=== PATIENT | male | born 1955 | race Caucasian/White ===

== ENCOUNTER 2020-10-09 19:19 | Emergency (ER) | payer MEDICAID, OTHER ==
[~2020-10-09] VITALS: Ht 175.3 cm; Wt 108.9 kg
[~2020-10-09 19:19] MED LIST: DIVA500T1 PO; HAL5 PO; LAC PO; QUET300T1 PO; TRAZ-343 PO
[2020-10-09 19:23] VITALS: BP 170/112
--- NOTE | 2020-10-09 19:40 | NUR ---
64 Y/O MALE BIBA PER EMS C/O GEN WEAKNESS PT WAS FOUND ON [address] ON [address]. PT WAS WALKING FOR A LONG PERIOD OF TIME AND FELT WEAK. DENIES PAIN. PT STATES "I FEEL WEAK AND FATIGUED". BLOOD PRESSURE WAS HIGH UPON ARRIVAL @ 170/112. MEDHX: SCHIZOPHRENIA, DM, HTN NKA
[2020-10-09 20:26] LABS: BASOPHILS % (AUTO) 0.5 % (0.0-2.0); EOSINOPHILS # (AUTO) 0.2 K/uL (0-0.4); EOSINOPHILS % (AUTO) 1.6 % (0.0-4.0); HEMOGLOBIN 14.6 g/dL (12.0-18.0); LYMPHOCYTES # (AUTO) 1.8 K/uL (2.0-11.5); LYMPHOCYTES % (AUTO) 17.6 % (20.5-51.1); MEAN CORPUSCULAR HEMOGLOBIN 33 pg (27-31); MEAN CORPUSCULAR HGB CONC 35 g/dL (33-37); MEAN CORPUSCULAR VOLUME 95.3 fL (80-94); MONOCYTES # (AUTO) 0.6 K/uL (0.8-1.0); MONOCYTES % (AUTO) 6.4 % (1.7-9.3); NEUTROPHILS # (AUTO) 7.4 K/uL (1.8-7.7); NEUTROPHILS % (AUTO) 73.9 % (42.2-75.2); PLATELET COUNT (AUTO) 249 K/uL (140-450); RED CELL DISTRIBUTION WIDTH 12.8 % (11.6-13.7)
[2020-10-09 20:35] LABS: ALBUMIN 4.4 g/dL (3.4-5.0); ANION GAP 14.5 (8-16); CARBON DIOXIDE 26.8 mmol/L (21-32); CREATININE 1.3 mg/dL (0.6-1.3); POTASSIUM 4.3 mmol/L (3.5-5.1); TOTAL BILIRUBIN 0.6 mg/dL (0.0-1.0)
--- NOTE | 2020-10-09 21:00 | NUR ---
EKG PERFORMED AT BEDSIDE. EKG READS SINUS RHYTHM @ 78
[2020-10-09 21:15] VITALS: BP 152/100
--- NOTE | 2020-10-09 21:21 | NUR ---
Patient discharged with v/s stable. Written and verbal after care instructions given and explained. Patient verbalized understanding. Ambulatory with steady gait. All questions addressed prior to discharge. Advised to follow up with PMD.
== END 2020-10-09 21:15 | disposition home or self-care (01) ==
LOC: MED 19:19
DX: R53.1 Weakness (principal); I10 Essential (primary) hypertension; E11.9 Type 2 diabetes mellitus without complications; F17.200 Nicotine dependence, unspecified, uncomplicated; F20.9 Schizophrenia, unspecified; Z79.899 Other long term (current) drug therapy
CPT/HCPCS: 36415; 71045; 80053; 83690; 84484; 85025; 93005; 99285

== ENCOUNTER 2020-12-17 10:44 | Emergency (ER) | payer OTHER ==
[2020-12-17 13:28] VITALS: BP 142/92
== END 2020-12-17 13:25 | disposition home or self-care (01) ==
LOC: MED 10:44
DX: R05 Cough (principal); I10 Essential (primary) hypertension; F17.210 Nicotine dependence, cigarettes, uncomplicated; Z79.899 Other long term (current) drug therapy
CPT/HCPCS: 71045; 99283